=== PATIENT | male | born 1950 | race Caucasian/White ===

== ENCOUNTER → 2018-07-26 15:04 | Outpatient (CLI) | payer MEDICARE, OTHER, SELFPAY ==
[2018-07-26 15:50] LABS: Cholesterol 193 mg/dL (140-199); HDL Cholesterol 49 mg/dL (40-60); LDL Cholesterol Calculated 123 mg/dL (<100); Triglycerides 106 mg/dL (35-150)
[2018-07-26 16:14] LABS: Hemoglobin A1C% w Est Avg Glu 5.5 % (4.0-6.0)
== END ==
PROVIDERS: PCP Internal Medicine; Visit Provider Internal Medicine
DX: E78.5 Hyperlipidemia, unspecified (principal); R73.03 Prediabetes
CPT/HCPCS: 36415; 80061; 83036

== ENCOUNTER → 2019-04-16 06:10 | Outpatient (CLI) | payer MEDICARE, OTHER, SELFPAY ==
--- NOTE | 2019-04-16 | DI.MRI.S_ITS ---
PROCEDURE: MR LUMBAR SPINE WO/W CON INDICATIONS: Low back pain TECHNIQUE: Noncontrast sagittal T1 spin echo and T2 fast spin echo, sagittal STIR, axial T1 and T2 fast spin echo through the lumbar spine. In cases with scoliosis, additional coronal T2 fast spin echo may be performed. After the administration of contrast, sagittal and axial T1 spin echo with fat saturation through the lumbar spine. COMPARISON: None. FINDINGS: Image quality: Excellent. Alignment and curvature: There is normal bony alignment. Marrow: Marrow is of normal overall signal. No acute vertebral body compression fractures. No suspicious marrow enhancement. Spinal cord: Conus medullaris terminates at the L1 level. Visualized spinal cord demonstrates normal signal, without suspicious enhancement. Paraspinous soft tissues: No paravertebral masses or abnormal enhancement. L1-L2: There is mild degenerative disc disease with mild disc height reduction and desiccation and a slight degree of facet osteoarthritis is also present but there is no associated spinal or foraminal stenosis. L2-L3: At this level the degenerative disc disease is more prominent, moderate in severity, with a broad-based posterior transverse disc bulge. Facet osteoarthritis also is moderate with secondary mild to moderate symmetric foraminal stenosis. No significant spinal stenosis. L3-L4: At L3-L4 degenerative disc disease is moderate, and facet osteoarthritis is moderately severe. This results in mild concentric spinal stenosis 1 bilateral ligamentum flavum hypertrophy is taken into account, there also is a moderate to moderately severe degree of foraminal stenosis L4-L5: Moderately severe degenerative disc disease, moderate facet osteoarthritis. No significant spinal stenosis. Mild to moderate foraminal stenosis without significant spinal stenosis. L5-S1: The degenerative disc disease at this level is moderately severe, facet osteoarthritis is moderate. There is symmetric mild to moderate foraminal stenosis. No significant spinal stenosis. IMPRESSION: No disc herniation is found. No subluxation is present. Overall there is a moderate to moderately severe degree of degenerative changes along the lumbosacral spine with a combination of relatively mild spinal stenosis and more prominent foraminal stenosis (symmetric) as discussed in detail by level and the body of the report above. No compression fracture is found, chronic or acute, and overall a new source of low back pain is not identified. Dictated by: Dereje Leyva M.D. on 04/16/2019 at 15:51 Approved by: Dereje Leyva M.D. on 04/16/2019 at 16:05
--- NOTE | 2019-04-16 | DI.MRI.S_ITS ---
PROCEDURE: MR THORACIC SPINE WO/W CON INDICATIONS: Low back pain TECHNIQUE: Noncontrast sagittal T1 spin echo and T2 fast spin echo, sagittal STIR, axial T1 and T2 fast spin echo through the thoracic spine. After the administration of contrast, axial and sagittal T1 spin echo with fat saturation through the thoracic spine. COMPARISON: None. FINDINGS: Image quality: Excellent. Alignment and curvature: There is normal bony alignment. Marrow: Marrow is of normal overall signal except for the presence of several scattered small hemangiomas within the vertebral body. No acute vertebral body compression fractures. Spinal cord: Visualized spinal cord is of normal signal and size, without abnormal enhancement. No there is a mild degree of degenerative disc disease along the middle and lower thirds of the thoracic spine, but no area of spinal or foraminal stenosis or nerve root impingement is found. Paraspinous soft tissues: No paravertebral masses or abnormal enhancement. Miscellaneous: Central canal and foramina appear widely patent at all scanned levels. IMPRESSION: Mild degenerative disc disease and facet osteoarthritis, without nerve root impingement. Several scattered small vertebral body marrow space hemangiomas are incidentally noted, but no underlying infection or malignant neoplasm is suspected and no prior or recent compression fracture is found. Dictated by: Dereje Leyva M.D. on 04/16/2019 at 15:00 Approved by: Dereje Leyva M.D. on 04/16/2019 at 15:02
== END ==
PROVIDERS: PCP Internal Medicine; Visit Provider Internal Medicine
DX: M54.5 Low back pain (principal); M51.34 Other intervertebral disc degeneration, thoracic region; M47.817 Spondylosis without myelopathy or radiculopathy, lumbosacral region; M48.07 Spinal stenosis, lumbosacral region
CPT/HCPCS: 72157; 72158; A9579

== ENCOUNTER 2019-04-25 09:12 | Day surgery (SDC) | payer MEDICARE, OTHER, SELFPAY ==
[2019-04-25 09:42] VITALS: BP 141/88; PULSE 80; RESP 16; TEMP 36.1; O2SAT 97; BMI 31.4
[2019-04-25] MEDS: SODIUM CHLORIDE 0.9% 1,000 ML 84 ML IV (10:11)
--- NOTE | 2019-04-25 10:14 | PM.HP.1 ---
History of Present Illness History of Present Illness Date Patient Seen: 04/25/19 Time Patient Seen: 10:14 Chief complaint: [id number] COLONOSCOPY Narrative: Need for colon cancer screening. Recent change in bowel movements with relative constipation Patient History Medical History (Updated 04/25/19 @ 09:28 by Elizabeth Steele RN) History of colon polyps (Acute) Obstructive sleep apnea (Acute) Family & Social History Social History: household members spouse Tobacco & Substance use: Smoking Status Never smoker Meds Home Medications and Allergies Home Medications Medication Instructions Recorded Confirmed Type Saccharomyces boulardii 250 mg 500 mg PO BID cap 08/28/18 03/14/19 History capsule ascorbic acid (vitamin C) 100 mg 1,000 mg PO DAILY 08/28/18 03/14/19 History tablet aspirin 81 mg tablet,delayed 81 mg PO DAILY 08/28/18 04/25/19 History release betamethasone dipropionate 0.05 % 1 applictn TOP DAILY PRN 08/28/18 04/25/19 History topical cream diphenhydramine HCl 25 mg capsule 25 mg PO Q8H PRN cap 08/28/18 04/25/19 History docusate sodium 100 mg capsule 200 - 300 mg PO DAILY cap 08/28/18 04/25/19 History ibuprofen 200 mg tablet 200 mg PO TID-QID PRN 08/28/18 04/25/19 History krill oil 500 mg capsule 500 mg PO DAILY cap 08/28/18 04/25/19 History melatonin 10 mg capsule 10 mg PO BEDTIME PRN 08/28/18 04/25/19 History psyllium seed (sugar) 1 tbsp PO DAILY PRN 08/28/18 04/25/19 History ranitidine HCl 150 mg tablet 600 mg PO BID tab 08/28/18 03/14/19 History turmeric 450 mg-turmeric root cap PO cap 08/28/18 03/14/19 History extract 50 mg capsule vitamin B complex 1 cap PO DAILY 08/28/18 03/14/19 History ascorbic acid (vitamin C) [Vitamin 1,000 mg PO DAILY 04/25/19 04/25/19 History C] cholecalciferol (vitamin D3) 4,000 unit PO DAILY 04/25/19 04/25/19 History [Vitamin D3] finasteride PO DAILY 04/25/19 History Allergies Allergy/AdvReac Type Severity Reaction Status Date / Time Sulfa (Sulfonamide Allergy Unknown Hives Verified 04/25/19 09:34 Antibiotics) Exam Vital Signs (past 8 hours): - 04/25/19 09:42 Temperature 96.9 F L Pulse Rate 80 Respiratory Rate 16 Blood Pressure 141/88 H Pulse Oximetry 97 Oxygen Delivery Method Room Air Narrative Exam Narrative: Oropharynx free of lesions Chest clear to auscultation percussion Cardiac exam reveals no S3 or murmur Assessment & Plan Assessment & Plan narrative: Need for colorectal cancer screening. Risks, benefits, alternatives have been explained.
--- NOTE | 2019-04-25 10:15 | PM.OP.ENDO ---
Operative Date/Time/Diagnoses Date of procedure: 04/25/19 Time of procedure: 10:15 Pre-op diagnosis: See indication and findings Procedure & Clinicians Study performed: Colonoscopy Indications: Colon cancer screening Surgeon: Lawrence Engle Procedure Notes Procedure in detail: After informed consent was obtained the patient was placed in left lateral decubitus position. The video colonoscope was introduced the rectum slowly advanced to cecum. On slow withdrawal mucosa was carefully examined. Preparation was good. The scope was removed. The patient tolerated procedure well. Blood loss none Complications none Sedation Total sedation time 22 minutes Versed 6 mg fentanyl 100 mg IV titration Findings 1. Sigmoid diverticulosis mild to moderate 2. Otherwise negative colonoscopy to cecum Patient will need follow-up colonoscopy in 5 years. He should be on stool softeners and or extra fiber supplements to help with his relative constipation.
[2019-04-25] MEDS: MIDAZOLAM 5 MG/5 ML VIAL IV (10:41)
[2019-04-25] MEDS: fentaNYL 250 MCG/5 ML INJ IV (10:41)
[2019-04-25 10:42] VITALS: BP 114/78; PULSE 71; RESP 12; TEMP 36.6; O2SAT 91
[2019-04-25 10:46] VITALS: BP 113/78; PULSE 67; RESP 11; O2SAT 91
[2019-04-25 10:51] VITALS: BP 99/69; PULSE 81; RESP 10; O2SAT 91
[2019-04-25 11:03] VITALS: BP 99/69; PULSE 72; RESP 16; TEMP 36.7; O2SAT 90
[2019-04-25 11:20] VITALS: BP 118/70; PULSE 70; RESP 16; TEMP 36.7; O2SAT 94
== END 2019-04-25 11:25 | disposition home or self-care (01) ==
PROVIDERS: Family Provider Internal Medicine; PCP Internal Medicine; Visit Provider Internal Medicine Gastroenterology
PROC: 0DJD8ZZ Inspection of Lower Intestinal Tract, Via Natural or Artificial Opening Endoscopic (ICD-10-PCS; CPT 45378; principal; 2019-04-25 10:30)
DX: Z12.11 Encounter for screening for malignant neoplasm of colon (principal); Z86.010 Personal history of colon polyps; G47.33 Obstructive sleep apnea (adult) (pediatric); K57.30 Diverticulosis of large intestine without perforation or abscess without bleeding
CPT/HCPCS: G0105; J2250; J3010

== ENCOUNTER → 2019-06-27 18:04 | Outpatient (CLI) | payer MEDICARE, OTHER, SELFPAY ==
--- NOTE | 2019-06-27 | DI.MRI.S_ITS ---
PROCEDURE: MR CERVICAL SPINE WO CON INDICATIONS: CERVICALGIA TECHNIQUE: Noncontrast sagittal T1 spin echo and T2 fast spin echo, sagittal STIR, foraminal oblique sagittal T2 fast spin echo, and axial gradient echo or T2 fast spin echo through the cervical spine. COMPARISON: None. FINDINGS: Image quality: Excellent. Alignment and Curvature: Trace degenerative retrolisthesis of C3 on C4. Trace degenerative retrolisthesis of C4 on C5. Trace degenerative antral listhesis of C7 on T1. Bone Marrow: Marrow demonstrates normal overall signal. Spinal Cord: Visualized spinal cord has normal size and signal. No cerebellar tonsillar herniation. Paraspinous Soft Tissues: No paravertebral masses. Prevertebral soft tissues are normal in thickness. C2-C3: No canal stenosis. Prominent left facet hypertrophy. Moderate to severe left foraminal narrowing with flattening deformity on the exiting left C3 nerve root. C3-C4: Moderate chronic disc anulus. Diffuse posterior disc plus osteophyte. Moderate to severe central canal stenosis. Bilateral uncovertebral joint hypertrophy. Moderate to severe bilateral foraminal narrowing with flattening deformity on the exiting bilateral C4 nerve roots. C4-C5: Moderate chronic disc height loss. Diffuse posterior disc plus osteophyte with focal right posterior disc protrusion. Impingement on the ventral cord, eccentric to the right. Severe canal stenosis. Bilateral uncovertebral joint hypertrophy. Severe bilateral foraminal narrowing with impingement on the bilateral C5 nerve roots. C5-C6: Diffuse posterior disc bulge plus osteophyte. Indentation on the ventral cord. Severe canal stenosis. Bilateral facet hypertrophy and uncovertebral joint hypertrophy. Severe bilateral foraminal narrowing with impingement on the bilateral C6 nerve roots. C6-C7: Moderate chronic disc height loss. Mild diffuse disc bulge. Mild to moderate canal stenosis. Bilateral uncovertebral joint hypertrophy and facet hypertrophy. Severe bilateral foraminal narrowing with impingement on the bilateral C7 nerve roots. C7-T1: No canal stenosis. Prominent left facet hypertrophy. Moderate left foraminal narrowing with flattening deformity on the exiting left C8 nerve root. IMPRESSION: 1. Extensive diffuse cervical spondylitic change. 2. Advanced multilevel canal stenosis, moderate to severe at C3-C4, severe at C4-C5 and C5-C6, and mild to moderate at C6-C7. 3. Extensive multilevel foraminal narrowing as described above. Dictated by: Alejandro Nicholas M.D. on 06/28/2019 at 8:53 Approved by: Alejandro Nicholas M.D. on 06/28/2019 at 9:02
== END ==
PROVIDERS: Family Provider Internal Medicine; PCP Internal Medicine; Referring Provider Neurological Surgery; Visit Provider Neurological Surgery
DX: M54.2 Cervicalgia (principal); M47.812 Spondylosis without myelopathy or radiculopathy, cervical region; M48.02 Spinal stenosis, cervical region
CPT/HCPCS: 72141

== ENCOUNTER → 2019-07-05 13:52 | Outpatient (CLI) | payer MEDICARE, OTHER, SELFPAY ==
[2019-07-05 15:01] LABS: Alanine Aminotransferase 35 IU/L (<50); Albumin 4.8 g/dL (3.5-5.0); Albumin Globulin Ratio 1.5 (1.0-2.8); Alkaline Phosphatase 48 U/L (38-126); Aspartate Aminotransferase 32 IU/L (17-59); BUN Creatinine Ratio 25.6 (6-22); Bilirubin Total 0.6 mg/dL (0.2-1.3); Blood Urea Nitrogen 23 mg/dL (9-20); Calcium 9.9 mg/dL (8.4-10.2); Carbon Dioxide 26 mmol/L (22-32); Chloride 103 mmol/L (98-107); Cholesterol 185 mg/dL (140-199); Estimated Glomerular Filt Rate > 60.0 mL/min (>60); Globulin 3.3 g/dL (1.7-4.1); Glucose 108 mg/dL (80-110); HDL Cholesterol 46 mg/dL (40-60); HEMOLYSIS < 15 (0-50); LDL Cholesterol Calculated 108 mg/dL (<100); Potassium 4.3 mmol/L (3.4-5.1); Sodium 140 mmol/L (137-145); Total Protein 8.1 g/dL (6.3-8.2); Triglycerides 157 mg/dL (35-150)
[2019-07-05 15:03] LABS: Hemoglobin A1C% w Est Avg Glu 5.4 % (4.0-6.0)
== END ==
PROVIDERS: Family Provider Internal Medicine; PCP Internal Medicine; Referring Provider Internal Medicine; Visit Provider Internal Medicine
DX: E78.5 Hyperlipidemia, unspecified (principal); R73.03 Prediabetes
CPT/HCPCS: 36415; 80053; 80061; 83036

== ENCOUNTER → 2019-07-09 16:35 | Outpatient (CLI) | payer MEDICARE, OTHER, SELFPAY ==
--- NOTE | 2019-07-09 | DI.RAD.S_ITS ---
PROCEDURE: XR CERVICAL SPINE 4V OR 5V INDICATIONS: Stricture and stenosis of cervix uteri TECHNIQUE: 5 views of the cervical spine were acquired. COMPARISON: None. FINDINGS: Bones: No fractures or dislocations to the T1 level. No suspicious bony lesions. Degenerative endplate changes throughout cervical spine is seen more prominent at C4-5 and C6-7 levels. There is decreased range of motion between flexion and extension, with preserved cervical spine alignment. Soft tissues: Prevertebral soft tissues are normal in thickness. IMPRESSION: Degenerative disc disease throughout cervical spine with decreased range of motion. No fracture or dislocation. Dictated by: Charly Ocampo M.D. on 07/09/2019 at 18:23 Approved by: Charly Ocampo M.D. on 07/09/2019 at 18:23
== END ==
PROVIDERS: Family Provider Internal Medicine; PCP Internal Medicine; Referring Provider Neurological Surgery; Visit Provider Neurological Surgery
DX: M48.02 Spinal stenosis, cervical region (principal); M50.321 Other cervical disc degeneration at C4-C5 level
CPT/HCPCS: 72050

== ENCOUNTER → 2020-05-28 08:58 | Outpatient (CLI) | payer MEDICARE, OTHER, SELFPAY ==
[2020-05-28 10:37] LABS: COVID19 -Nasal RAPID Negative (Negative)
== END ==
PROVIDERS: Family Provider Internal Medicine; Referring Provider Internal Medicine Pulmonary Disease; Visit Provider Internal Medicine Pulmonary Disease
DX: Z20.822 Contact with and (suspected) exposure to COVID-19 (principal)
CPT/HCPCS: 87635; C9803

== ENCOUNTER → 2020-05-29 12:52 | Outpatient (CLI) | payer MEDICARE, OTHER, SELFPAY ==
--- NOTE | 2020-06-04 10:00 | PM.PFT.1 ---
Pulmonary Function Test Referral & Results Date Patient Seen: 05/29/20 Requesting provider: Thor Shell Results: The spirometry demonstrates an FVC of 3.39 L which is 71% of predicted. The FEV1 was measured at 2.29 L which is 65% of predicted. The FEV1/FVC ratio was 68 which is 91% of predicted. Following the administration of bronchodilator there was a 30% improvement in FEV1 and a 128% improvement in FEF 25-75%. The diffusing capacity was measured at 28.26 which is 80% of predicted. Interpretation: This study demonstrates mild obstructive lung disease based on reduction FEV1 although FEV1/FVC ratio is relatively preserved. There is evidence of significant benefit following bronchodilator administration as above Diffusing capacity is probably normal although there may be a slight reduction, unless patient is anemic of course.
== END ==
PROVIDERS: Family Provider Internal Medicine; PCP Internal Medicine; Referring Provider Internal Medicine Pulmonary Disease; Visit Provider Internal Medicine Pulmonary Disease
DX: R06.02 Shortness of breath (principal); J98.8 Other specified respiratory disorders
CPT/HCPCS: 94060; 94729

== ENCOUNTER → 2021-08-06 10:30 | Outpatient (CLI) | payer MEDICARE, OTHER, SELFPAY ==
[2021-08-06 11:25] LABS: Fractionated Inspired Oxygen 21; HCO3 ABG 26 mmol/L (22-26); Oxygen Saturation ABG 95 % (95-100); PCO2 ABG 39.5 mmHg (35-45); PO2 ABG 72 mmHg (80-100); TCO2 ABG 27 mmol/L (21-31); pH ABG 7.43 (7.35-7.45)
== END ==
LOC: LAB 11:22 → RESP 12:51
PROVIDERS: Family Provider Internal Medicine; PCP Internal Medicine; Referring Provider Internal Medicine Pulmonary Disease; Visit Provider Internal Medicine Pulmonary Disease
DX: J44.9 Chronic obstructive pulmonary disease, unspecified (principal)
CPT/HCPCS: 36600; 82805

== ENCOUNTER 2021-10-09 09:45 | Outpatient (RCR) | payer MEDICARE, OTHER, SELFPAY ==
--- NOTE | 2021-09-17 16:00 | PT.OPPOC ---
Physical, Occupational & Speech Therapy At [facility] Current Diagnoses Cervicalgia (09/17/21) Dizziness and giddiness (09/17/21) Visit Care Team Role Provider Type Nayely Levine MD Attending Provider Non-Staff Family Provider Primary Care Provider Referring Provider Specialty: Internal Medicine Address: [address] [place] [address], [phone] Email: Plan Of Care PT-OP-T Assessment and Plan Start: 09/09/21 12:04 Freq: Status: Active Protocol: Document 09/17/21 11:15 AMB (Rec: 09/20/21 12:50 AMB [id number]) Physical Therapy Assessment Rehab Potential Rehabilitation Potential Good Evaluation Complexity Number of Personal Factors/Comorbidities 1-2 Number of Body Systems Impaired 4 or More Clinical Presentation at Evaluation Stable Impairments Impairments Pain,Posture,ROM,Vestibular Goals Three Impairment neck pain Short Term Goal (STG) Alejandro will lift 10 pounds from the floor to chest height without an increase in neck pain. STG Duration 4 weeks Group Home Goal (LTG) Alejandro will drive his car for 30 minutes with neck pain of 3/ 10 or less. LTG Duration 8 weeks Two Impairment dizziness Short Term Goal (STG) Alejandro will look up without dizziness. STG Duration 4 weeks One Impairment ROM Short Term Goal (STG) Alejandor will improve his cervical rotation to at least 50 degrees bilaterally. STG Duration 4 weeks Group Home Goal (LTG) Alejandro will improve his cervical extension to at least 40 degrees. Assessment Summary Assessment Alejandro attends physical therapy mostly concerned about his neck pain. His neck range of motion is very limited 2 years s/p cervical laminoplasty. A thorough exam of his dizziness was not performed at [facility], given that he reports it is getting better and mostly due to time restrictions. Will continue to assess, and treat if dizziness does not resolve. Alejandro's posture and limited range of motion make it difficult for him to be as active as he would like to be (boating/lifting) and he will benefit from physical therapy to reduce his pain and improve his ROM. Physical Therapy Plan Frequency and Duration Frequency of Treatment 2x/Week Duration of Treatment 8 weeks Plan of Care Start Date 09/17/21 Plan of Care End Date 11/12/21 Therapeutic Interventions Therapeutic Interventions Balance Training,Home Exercise Program,Joint Mobilizations, Manual Therapy,Neuromuscular Re-education,Self-Care/Home Management,Therapeutic Activities,Therapeutic Exercises,Vestibular Rehabilitation Modalities Cold Pack/Ice Massage,Electric Stimulation,Hot Packs Next Visit Focus/Plan Next Note Type Treatment Note Next Visit Plan Continue to progress cervical ROM, assess dizziness Plan of Care Dates Plan of Care Start Date 09/17/21 Plan of Care End Date 11/12/21 Electronically Signed by: Soal Santos, PT 09/20/21 [id number] If you are in agreement with this Plan of Care, please return a signed and dated copy. I have reviewed this Plan of Care and certify that the skilled therapy services above are required to meet the patient?s needs. Physician Signature Date Printed Name and Credentials Clinical Instructor Signature Printed Name and Credentials
--- NOTE | 2021-09-17 16:00 | PT.OIE ---
Current Diagnoses Cervicalgia (09/17/21) Dizziness and giddiness (09/17/21) Past Medical History (Last Updated 04/25/19 @ 09:28 by Elizabeth Steele RN) History of colon polyps Obstructive sleep apnea Visit Care Team Role Provider Type Nayely Levine MD Attending Provider Non-Staff Family Provider Primary Care Provider Referring Provider Specialty: Internal Medicine Address: [address] [place] [address], [phone] Email: Physical Therapy Initial Evaluation PT-OP-A Visit Information Start: 09/09/21 12:04 Freq: Status: Active Protocol: Document 09/17/21 11:18 AMB (Rec: 09/17/21 11:39 AMB [id number]) Out-Patient Physical Therapy Visit Information Visit Information Visit Type Initial Evaluation Visit Start Time 11:15 Visit Stop Time 12:00 Total Visit Minutes 45 Visit Number 1 PT-OP-B Current Condition Start: 09/09/21 12:04 Freq: Status: Active Protocol: Document 09/17/21 11:18 AMB (Rec: 09/17/21 11:39 AMB [id number]) Current Condition History of Current Condition Onset Date September 2019 cervical laminoplasty Current Complaints neck pain, dizziness History of Current Condition Alejandro had a cervical laminoplasty C3-5 2 years ago. He elected to have the surgery, not due to neck pain but due to radicular sx (bowel /bladder/midback). 3 months ago developed vertigo when lying down the world spins. Spinning seems to be getting better over the past few weeks . Looking up increases pain, lifting increases neck pain. Did have prior PT for neck after surgery. Hasn't been boating as much because of the pain. Notices stiffness with neck range especially with driving. Sleeps on his sides/ back. History of lumbar laminectomy with numbness in great toe, does report less sure with balance. Treatment Goals Patient/Caregiver Goals Be able to move neck, less neck pain Prior Functional Status Baseline Function- ADL's Modified Independent Baseline Function- Mobility Modified Independent Current Functional Impairments (Reported) Functional Limitations- ADL's Dizziness getting into bed, reduced range of motion, neck pain, difficulty with lifting and boating due to pain Personal Factors Other Personal Factors That May Effect Pt reported low SpO2, fatigue Therapy/Recovery PT-OP-C Subjective Start: 09/09/21 12:04 Freq: Status: Active Protocol: Document 09/17/21 11:15 AMB (Rec: 09/20/21 12:33 AMB [id number]) Patient Questionnaires Dizziness Handicap Inventory DHI Score 50 DHI Functional Impairment 40 to 59% Impaired (Score 40- 59) Neck Disability Index NDI Score 20 Neck Disability Index Impairment 40 to 59% Impaired (Score 20- 29) Quick Dash- Upper Extremity Quick Dash UE Score 39 Quick Dash UE Impairment 20 to 39% Impaired (Score 20- 39) PT-OP-J Posture/Palpation/Skin Start: 09/09/21 12:04 Freq: Status: Active Protocol: Document 09/17/21 11:15 AMB (Rec: 09/20/21 12:33 AMB [id number]) Posture Evaluation Comments Posture Comments Forward head, forward shoulder posture, flat cervical spine Palpation Assessment Location One Palpation Location neck Palpation Findings Soft Tissue Tightness,Muscle Guarding Palpation Details increased tone of paraspinal muscles around scar from mid to lower cervical spine. Increased muscle tone of upper trapezius and levator scapula PT-OP-K Range of Motion Start: 09/09/21 12:04 Freq: Status: Active Protocol: Document 09/17/21 11:45 AMB (Rec: 09/17/21 11:49 AMB [id number]) Cervical Spine Range of Motion Cervical Spine Active Degrees Testing Position Sitting Flexion 40 Extension 30 Rotation Left 40 Rotation Right 34 Lateral Flexion Left 5 Lateral Flexion Right 5 PT-OP-Q Treatments Start: 09/09/21 12:04 Freq: Status: Active Protocol: Document 09/17/21 11:15 AMB (Rec: 09/20/21 12:50 AMB [id number]) Therapeutic Exercises Sitting Exercises scap retraction Reps/Minutes 10 levator scap stretch Reps/Minutes 30x2 PT-OP-T Assessment and Plan Start: 09/09/21 12:04 Freq: Status: Active Protocol: Document 09/17/21 11:15 AMB (Rec: 09/20/21 12:50 AMB [id number]) Physical Therapy Assessment Rehab Potential Rehabilitation Potential Good Evaluation Complexity Number of Personal Factors/Comorbidities 1-2 Number of Body Systems Impaired 4 or More Clinical Presentation at Evaluation Stable Impairments Impairments Pain,Posture,ROM,Vestibular Goals Three Impairment neck pain Short Term Goal (STG) Alejandro will lift 10 pounds from the floor to chest height without an increase in neck pain. STG Duration 4 weeks Post Partum Nurse Goal (LTG) Alejandro will drive his car for 30 minutes with neck pain of 3/ 10 or less. LTG Duration 8 weeks Two Impairment dizziness Short Term Goal (STG) Alejandro will look up without dizziness. STG Duration 4 weeks One Impairment ROM Short Term Goal (STG) Alejandro will improve his cervical rotation to at least 50 degrees bilaterally. STG Duration 4 weeks [facility] Goal (LTG) Alejandro will improve his cervical extension to at least 40 degrees. Assessment Summary Assessment Alejandro attends physical therapy mostly concerned about his neck pain. His neck range of motion is very limited 2 years s/p cervical laminoplasty. A thorough exam of his dizziness was not performed at [facility], given that he reports it is getting better and mostly due to time restrictions. Will continue to assess, and treat if dizziness does not resolve. Alejandro's posture and limited range of motion make it difficult for him to be as active as he would like to be (boating/lifting) and he will benefit from physical therapy to reduce his pain and improve his ROM. Physical Therapy Plan Frequency and Duration Frequency of Treatment 2x/Week Duration of Treatment 8 weeks Plan of Care Start Date 09/17/21 Plan of Care End Date 11/12/21 Therapeutic Interventions Therapeutic Interventions Balance Training,Home Exercise Program,Joint Mobilizations, Manual Therapy,Neuromuscular Re-education,Self-Care/Home Management,Therapeutic Activities,Therapeutic Exercises,Vestibular Rehabilitation Modalities Cold Pack/Ice Massage,Electric Stimulation,Hot Packs Next Visit Focus/Plan Next Note Type Treatment Note Next Visit Plan Continue to progress cervical ROM, assess dizziness
--- NOTE | 2021-09-22 12:15 | PT.OTN ---
Current Diagnoses Cervicalgia (09/22/21) Dizziness and giddiness (09/22/21) Physical Therapy Treatment Note PT-OP-A Visit Information Start: 09/09/21 12:04 Freq: Status: Active Protocol: Document 09/22/21 11:15 AMB (Rec: 09/22/21 12:13 AMB [id number]) Out-Patient Physical Therapy Visit Information Visit Information Visit Type Treatment Note Visit Start Time 11:30 Visit Stop Time 12:00 Total Visit Minutes 30 Visit Number 2 PT-OP-B Current Condition Start: 09/09/21 12:04 Freq: Status: Active Protocol: Document 09/17/21 11:18 AMB (Rec: 09/17/21 11:39 AMB [id number]) Current Condition History of Current Condition Onset Date September 2019 cervical laminoplasty Current Complaints neck pain, dizziness History of Current Condition Alejandro had a cervical laminoplasty C3-5 2 years ago. He elected to have the surgery, not due to neck pain but due to radicular sx (bowel /bladder/midback). 3 months ago developed vertigo when lying down the world spins. Spinning seems to be getting better over the past few weeks . Looking up increases pain, lifting increases neck pain. Did have prior PT for neck after surgery. Hasn't been boating as much because of the pain. Notices stiffness with neck range especially with driving. Sleeps on his sides/ back. History of lumbar laminectomy with numbness in great toe, does report less sure with balance. Treatment Goals Patient/Caregiver Goals Be able to move neck, less neck pain Prior Functional Status Baseline Function- ADL's Modified Independent Baseline Function- Mobility Modified Independent Current Functional Impairments (Reported) Functional Limitations- ADL's Dizziness getting into bed, reduced range of motion, neck pain, difficulty with lifting and boating due to pain Personal Factors Other Personal Factors That May Effect Pt reported low SpO2, fatigue Therapy/Recovery PT-OP-C Subjective Start: 09/09/21 12:04 Freq: Status: Active Protocol: Document 09/22/21 11:15 AMB (Rec: 09/22/21 12:13 AMB [id number]) OP-PT Subjective Patient Comments Patient Comments Reports intermittent L numbness with sleeping in the night, C8/ulnar dermatome from his description. PT-OP-J Posture/Palpation/Skin Start: 09/09/21 12:04 Freq: Status: Active Protocol: Document 09/17/21 11:15 AMB (Rec: 09/20/21 12:33 AMB [id number]) Posture Evaluation Comments Posture Comments Forward head, forward shoulder posture, flat cervical spine Palpation Assessment Location One Palpation Location neck Palpation Findings Soft Tissue Tightness,Muscle Guarding Palpation Details increased tone of paraspinal muscles around scar from mid to lower cervical spine. Increased muscle tone of upper trapezius and levator scapula PT-OP-K Range of Motion Start: 09/09/21 12:04 Freq: Status: Active Protocol: Document 09/17/21 11:45 AMB (Rec: 09/17/21 11:49 AMB [id number]) Cervical Spine Range of Motion Cervical Spine Active Degrees Testing Position Sitting Flexion 40 Extension 30 Rotation Left 40 Rotation Right 34 Lateral Flexion Left 5 Lateral Flexion Right 5 PT-OP-Q Treatments Start: 09/09/21 12:04 Freq: Status: Active Protocol: Document 09/22/21 11:15 AMB (Rec: 09/22/21 12:13 AMB [id number]) Therapeutic Exercises Sitting Exercises scap retraction Reps/Minutes 10 levator scap stretch Reps/Minutes 30x2 Standing Exercises chin tuck Standing Exercise Name against wall Reps/Minutes 5x 5 Comments cued occiput back to avoid upper cervical extension Manual Therapy Treatment Soft Tissue Mobilization suboccipital release Mobilization Type Myofascial Release,Sustained Pressure Body Position Hooklying Manual Techniques 1 Type contract relax Body Position Hooklying Reps/Duration 5 min Comments cervical rotation PT-OP-T Assessment and Plan Start: 09/09/21 12:04 Freq: Status: Active Protocol: Document 09/22/21 11:15 AMB (Rec: 09/22/21 12:13 AMB [id number]) Physical Therapy Assessment Goals Three Impairment neck pain Short Term Goal (STG) Alejandro will lift 10 pounds from the floor to chest height without an increase in neck pain. STG Duration 4 weeks Social Media Community Manager Goal (LTG) Alejandro will drive his car for 30 minutes with neck pain of 3/ 10 or less. LTG Duration 8 weeks Two Impairment dizziness Short Term Goal (STG) Alejandro will look up without dizziness. STG Duration 4 weeks One Impairment ROM Short Term Goal (STG) Alejandro will improve his cervical rotation to at least 50 degrees bilaterally. STG Duration 4 weeks [facility] Goal (LTG) Alejandro will improve his cervical extension to at least 40 degrees. Assessment Summary Assessment Alejandro arrived 15 min late. He is having difficulty with the chin tuck, so spent a significant amount of time on that. He states dizziness hasn't been having much dizziness. L arm numbness only with sleeping. Physical Therapy Plan Frequency and Duration Frequency of Treatment 2x/Week Duration of Treatment 8 weeks Plan of Care Start Date 09/17/21 Plan of Care End Date 11/12/21 Therapeutic Interventions Therapeutic Interventions Balance Training,Home Exercise Program,Joint Mobilizations, Manual Therapy,Neuromuscular Re-education,Self-Care/Home Management,Therapeutic Activities,Therapeutic Exercises,Vestibular Rehabilitation Modalities Cold Pack/Ice Massage,Electric Stimulation,Hot Packs Next Visit Focus/Plan Next Note Type Treatment Note Next Visit Plan Follow up on posture, HEP: chin tuck, scap retract, levator scap stretch.
--- NOTE | 2021-09-28 11:31 | PT.OTN ---
Current Diagnoses Cervicalgia (09/28/21) Dizziness and giddiness (09/28/21) Physical Therapy Treatment Note PT-OP-A Visit Information Start: 09/09/21 12:04 Freq: Status: Active Protocol: Document 09/28/21 10:30 DCW (Rec: 09/28/21 11:31 DCW [id number]) Out-Patient Physical Therapy Visit Information Visit Information Visit Type Treatment Note Visit Start Time 10:30 Visit Stop Time 11:15 Total Visit Minutes 45 Visit Number 3 Number of ELEMENTARY VOCAL MUSIC TEACHER Visits 0 PT-OP-B Current Condition Start: 09/09/21 12:04 Freq: Status: Active Protocol: Document 09/17/21 11:18 AMB (Rec: 09/17/21 11:39 AMB [id number]) Current Condition History of Current Condition Onset Date September 2019 cervical laminoplasty Current Complaints neck pain, dizziness History of Current Condition Alejandro had a cervical laminoplasty C3-5 2 years ago. He elected to have the surgery, not due to neck pain but due to radicular sx (bowel /bladder/midback). 3 months ago developed vertigo when lying down the world spins. Spinning seems to be getting better over the past few weeks . Looking up increases pain, lifting increases neck pain. Did have prior PT for neck after surgery. Hasn't been boating as much because of the pain. Notices stiffness with neck range especially with driving. Sleeps on his sides/ back. History of lumbar laminectomy with numbness in great toe, does report less sure with balance. Treatment Goals Patient/Caregiver Goals Be able to move neck, less neck pain Prior Functional Status Baseline Function- ADL's Modified Independent Baseline Function- Mobility Modified Independent Current Functional Impairments (Reported) Functional Limitations- ADL's Dizziness getting into bed, reduced range of motion, neck pain, difficulty with lifting and boating due to pain Personal Factors Other Personal Factors That May Effect Pt reported low SpO2, fatigue Therapy/Recovery PT-OP-C Subjective Start: 09/09/21 12:04 Freq: Status: Active Protocol: Document 09/28/21 10:30 DCW (Rec: 09/28/21 11:31 DCW [id number]) OP-PT Subjective Patient Comments Patient Comments My goal is really just to help out with the pain a little bit. Most of the issue is structural, and I know you can't do much for that. PT-OP-J Posture/Palpation/Skin Start: 09/09/21 12:04 Freq: Status: Active Protocol: Document 09/17/21 11:15 AMB (Rec: 09/20/21 12:33 AMB [id number]) Posture Evaluation Comments Posture Comments Forward head, forward shoulder posture, flat cervical spine Palpation Assessment Location One Palpation Location neck Palpation Findings Soft Tissue Tightness,Muscle Guarding Palpation Details increased tone of paraspinal muscles around scar from mid to lower cervical spine. Increased muscle tone of upper trapezius and levator scapula PT-OP-K Range of Motion Start: 09/09/21 12:04 Freq: Status: Active Protocol: Document 09/17/21 11:45 AMB (Rec: 09/17/21 11:49 AMB [id number]) Cervical Spine Range of Motion Cervical Spine Active Degrees Testing Position Sitting Flexion 40 Extension 30 Rotation Left 40 Rotation Right 34 Lateral Flexion Left 5 Lateral Flexion Right 5 PT-OP-Q Treatments Start: 09/09/21 12:04 Freq: Status: Active Protocol: Document 09/28/21 10:30 DCW (Rec: 09/28/21 11:31 DCW [id number]) Manual Therapy Treatment Soft Tissue Mobilization suboccipital release Mobilization Type Myofascial Release,Sustained Pressure Body Position Hooklying Joint Mobilizations C2 Joint C2 Direction CCW rotation Grade II Body Position Hooklying Manual Techniques 1 Type contract relax Body Position Hooklying Reps/Duration 5 min Comments cervical rotation PT-OP-T Assessment and Plan Start: 09/09/21 12:04 Freq: Status: Active Protocol: Document 09/28/21 10:30 DCW (Rec: 09/28/21 11:31 DCW [id number]) Physical Therapy Assessment Goals Three Impairment neck pain Short Term Goal (STG) Alejandro will lift 10 pounds from the floor to chest height without an increase in neck pain. STG Duration 4 weeks Safety Advisor Goal (LTG) Alejandro will drive his car for 30 minutes with neck pain of 3/ 10 or less. LTG Duration 8 weeks Two Impairment dizziness Short Term Goal (STG) Alejandro will look up without dizziness. STG Duration 4 weeks One Impairment ROM Short Term Goal (STG) Alejandro will improve his cervical rotation to at least 50 degrees bilaterally. STG Duration 4 weeks Alf Goal (LTG) Alejandro will improve his cervical extension to at least 40 degrees. Assessment Summary Assessment Pt has a significant number of ideas and theories regarding his condition today, most notably that his Vagus nerve may be affected in some way, leading to his multi-system symptoms. Worked more on mobilization of C2 today, as that is an area pt is most worried about. Physical Therapy Plan Frequency and Duration Frequency of Treatment 2x/Week Duration of Treatment 8 weeks Plan of Care Start Date 09/17/21 Plan of Care End Date 11/12/21 Therapeutic Interventions Therapeutic Interventions Balance Training,Home Exercise Program,Joint Mobilizations, Manual Therapy,Neuromuscular Re-education,Self-Care/Home Management,Therapeutic Activities,Therapeutic Exercises,Vestibular Rehabilitation Modalities Cold Pack/Ice Massage,Electric Stimulation,Hot Packs Next Visit Focus/Plan Next Note Type Treatment Note Next Visit Plan Follow up on posture, HEP: chin tuck, scap retract, levator scap stretch.
--- NOTE | 2021-10-01 12:45 | PT.OTN ---
Current Diagnoses Cervicalgia (10/01/21) Dizziness and giddiness (10/01/21) Physical Therapy Treatment Note PT-OP-A Visit Information Start: 09/09/21 12:04 Freq: Status: Active Protocol: Document 10/01/21 12:00 DCW (Rec: 10/01/21 12:45 DCW [id number]) Out-Patient Physical Therapy Visit Information Visit Information Visit Type Treatment Note Visit Start Time 12:00 Visit Stop Time 12:45 Total Visit Minutes 45 Visit Number 4 Number of LAST[employer] THREAD WINDER Visits 0 PT-OP-B Current Condition Start: 09/09/21 12:04 Freq: Status: Active Protocol: Document 09/17/21 11:18 AMB (Rec: 09/17/21 11:39 AMB [id number]) Current Condition History of Current Condition Onset Date September 2019 cervical laminoplasty Current Complaints neck pain, dizziness History of Current Condition Alejandro had a cervical laminoplasty C3-5 2 years ago. He elected to have the surgery, not due to neck pain but due to radicular sx (bowel /bladder/midback). 3 months ago developed vertigo when lying down the world spins. Spinning seems to be getting better over the past few weeks . Looking up increases pain, lifting increases neck pain. Did have prior PT for neck after surgery. Hasn't been boating as much because of the pain. Notices stiffness with neck range especially with driving. Sleeps on his sides/ back. History of lumbar laminectomy with numbness in great toe, does report less sure with balance. Treatment Goals Patient/Caregiver Goals Be able to move neck, less neck pain Prior Functional Status Baseline Function- ADL's Modified Independent Baseline Function- Mobility Modified Independent Current Functional Impairments (Reported) Functional Limitations- ADL's Dizziness getting into bed, reduced range of motion, neck pain, difficulty with lifting and boating due to pain Personal Factors Other Personal Factors That May Effect Pt reported low SpO2, fatigue Therapy/Recovery PT-OP-C Subjective Start: 09/09/21 12:04 Freq: Status: Active Protocol: Document 10/01/21 12:00 DCW (Rec: 10/01/21 12:45 DCW [id number]) OP-PT Subjective Patient Comments Patient Comments Pt was able to meet with a friend of his who is a chiropractor, feels better about the stability of his C1- C2 now, which was a prior concern of his. PT-OP-J Posture/Palpation/Skin Start: 09/09/21 12:04 Freq: Status: Active Protocol: Document 09/17/21 11:15 AMB (Rec: 09/20/21 12:33 AMB [id number]) Posture Evaluation Comments Posture Comments Forward head, forward shoulder posture, flat cervical spine Palpation Assessment Location One Palpation Location neck Palpation Findings Soft Tissue Tightness,Muscle Guarding Palpation Details increased tone of paraspinal muscles around scar from mid to lower cervical spine. Increased muscle tone of upper trapezius and levator scapula PT-OP-K Range of Motion Start: 09/09/21 12:04 Freq: Status: Active Protocol: Document 09/17/21 11:45 AMB (Rec: 09/17/21 11:49 AMB [id number]) Cervical Spine Range of Motion Cervical Spine Active Degrees Testing Position Sitting Flexion 40 Extension 30 Rotation Left 40 Rotation Right 34 Lateral Flexion Left 5 Lateral Flexion Right 5 PT-OP-Q Treatments Start: 09/09/21 12:04 Freq: Status: Active Protocol: Document 10/01/21 12:00 DCW (Rec: 10/01/21 12:45 DCW [id number]) Manual Therapy Treatment Soft Tissue Mobilization suboccipital release Mobilization Type Myofascial Release,Sustained Pressure Body Position Hooklying Joint Mobilizations C2 Joint C2 Direction CCW rotation Grade II Body Position Hooklying Manual Techniques 1 Type contract relax Body Position Hooklying Reps/Duration 5 min Comments cervical rotation PT-OP-T Assessment and Plan Start: 09/09/21 12:04 Freq: Status: Active Protocol: Document 10/01/21 12:00 DCW (Rec: 10/01/21 12:45 DCW [id number]) Physical Therapy Assessment Goals Three Impairment neck pain Short Term Goal (STG) Alejandro will lift 10 pounds from the floor to chest height without an increase in neck pain. STG Duration 4 weeks Seo Associate Goal (LTG) Alejandro will drive his car for 30 minutes with neck pain of 3/ 10 or less. LTG Duration 8 weeks Two Impairment dizziness Short Term Goal (STG) Alejandro will look up without dizziness. STG Duration 4 weeks One Impairment ROM Short Term Goal (STG) Alejandro will improve his cervical rotation to at least 50 degrees bilaterally. STG Duration 4 weeks Seo Associate Goal (LTG) Alejandro will improve his cervical extension to at least 40 degrees. Assessment Summary Assessment Pt much more relaxed today and feels less apprehensive about cervical instability, tolerated treatment well. Physical Therapy Plan Frequency and Duration Frequency of Treatment 2x/Week Duration of Treatment 8 weeks Plan of Care Start Date 09/17/21 Plan of Care End Date 11/12/21 Therapeutic Interventions Therapeutic Interventions Balance Training,Home Exercise Program,Joint Mobilizations, Manual Therapy,Neuromuscular Re-education,Self-Care/Home Management,Therapeutic Activities,Therapeutic Exercises,Vestibular Rehabilitation Modalities Cold Pack/Ice Massage,Electric Stimulation,Hot Packs Next Visit Focus/Plan Next Note Type Treatment Note Next Visit Plan Follow up on posture, HEP: chin tuck, scap retract, levator scap stretch.
--- NOTE | 2021-10-06 10:24 | PT.OTN ---
Current Diagnoses Cervicalgia (10/06/21) Dizziness and giddiness (10/06/21) Physical Therapy Treatment Note PT-OP-A Visit Information Start: 09/09/21 12:04 Freq: Status: Active Protocol: Document 10/06/21 09:03 AMB (Rec: 10/06/21 09:47 AMB [id number]) Out-Patient Physical Therapy Visit Information Visit Information Visit Type Treatment Note Visit Start Time 09:00 Visit Stop Time 09:45 Total Visit Minutes 45 Visit Number 5 PT-OP-B Current Condition Start: 09/09/21 12:04 Freq: Status: Active Protocol: Document 09/17/21 11:18 AMB (Rec: 09/17/21 11:39 AMB [id number]) Current Condition History of Current Condition Onset Date September 2019 cervical laminoplasty Current Complaints neck pain, dizziness History of Current Condition Alejandro had a cervical laminoplasty C3-5 2 years ago. He elected to have the surgery, not due to neck pain but due to radicular sx (bowel /bladder/midback). 3 months ago developed vertigo when lying down the world spins. Spinning seems to be getting better over the past few weeks . Looking up increases pain, lifting increases neck pain. Did have prior PT for neck after surgery. Hasn't been boating as much because of the pain. Notices stiffness with neck range especially with driving. Sleeps on his sides/ back. History of lumbar laminectomy with numbness in great toe, does report less sure with balance. Treatment Goals Patient/Caregiver Goals Be able to move neck, less neck pain Prior Functional Status Baseline Function- ADL's Modified Independent Baseline Function- Mobility Modified Independent Current Functional Impairments (Reported) Functional Limitations- ADL's Dizziness getting into bed, reduced range of motion, neck pain, difficulty with lifting and boating due to pain Personal Factors Other Personal Factors That May Effect Pt reported low SpO2, fatigue Therapy/Recovery PT-OP-C Subjective Start: 09/09/21 12:04 Freq: Status: Active Protocol: Document 10/06/21 09:03 AMB (Rec: 10/06/21 09:47 AMB [id number]) OP-PT Subjective Patient Comments Patient Comments Pt is seeing a chiropractor in [place] on Tuesday. Mobility of the neck is improving, but pain has not been yet. Feels like vertigo has worsened in the last week. PT-OP-J Posture/Palpation/Skin Start: 09/09/21 12:04 Freq: Status: Active Protocol: Document 09/17/21 11:15 AMB (Rec: 09/20/21 12:33 AMB [id number]) Posture Evaluation Comments Posture Comments Forward head, forward shoulder posture, flat cervical spine Palpation Assessment Location One Palpation Location neck Palpation Findings Soft Tissue Tightness,Muscle Guarding Palpation Details increased tone of paraspinal muscles around scar from mid to lower cervical spine. Increased muscle tone of upper trapezius and levator scapula PT-OP-K Range of Motion Start: 09/09/21 12:04 Freq: Status: Active Protocol: Document 09/17/21 11:45 AMB (Rec: 09/17/21 11:49 AMB [id number]) Cervical Spine Range of Motion Cervical Spine Active Degrees Testing Position Sitting Flexion 40 Extension 30 Rotation Left 40 Rotation Right 34 Lateral Flexion Left 5 Lateral Flexion Right 5 PT-OP-Q Treatments Start: 09/09/21 12:04 Freq: Status: Active Protocol: Document 10/06/21 10:19 AMB (Rec: 10/07/21 10:22 AMB [id number]) Neuro Re-Education Treatment Other Activities 1 Details R Mary Reps/Duration 1 Comments torsional nystagmus in first postion for 5-10 seconds, very challenging to allow enough cervical extension throughout treatment, extensive pt education provided PT-OP-T Assessment and Plan Start: 09/09/21 12:04 Freq: Status: Active Protocol: Document 10/06/21 09:03 AMB (Rec: 10/06/21 09:47 AMB [id number]) Physical Therapy Assessment Goals Three Impairment neck pain Short Term Goal (STG) Alejandro will lift 10 pounds from the floor to chest height without an increase in neck pain. STG Duration 4 weeks Snf Goal (LTG) Alejandro will drive his car for 30 minutes with neck pain of 3/ 10 or less. LTG Duration 8 weeks Two Impairment dizziness Short Term Goal (STG) Alejandro will look up without dizziness. STG Duration 4 weeks One Impairment ROM Short Term Goal (STG) Alejandro will improve his cervical rotation to at least 50 degrees bilaterally. STG Duration 4 weeks Environmental Science Technician Goal (LTG) Alejandro will improve his cervical extension to at least 40 degrees. Assessment Summary Assessment Pt did have signs of BPPV with R sided Job-Hallpike. Physical Therapy Plan Next Visit Focus/Plan Next Note Type Treatment Note Next Visit Plan REassess Job Hallpike Follow up on posture, HEP: chin tuck , scap retract, levator scap stretch.
--- NOTE | 2021-10-07 10:23 | PT.OTN ---
Current Diagnoses Cervicalgia (10/06/21) Dizziness and giddiness (10/06/21) Physical Therapy Treatment Note PT-OP-A Visit Information Start: 09/09/21 12:04 Freq: Status: Active Protocol: Document 10/06/21 09:03 AMB (Rec: 10/06/21 09:47 AMB [id number]) Out-Patient Physical Therapy Visit Information Visit Information Visit Type Treatment Note Visit Start Time 09:00 Visit Stop Time 09:45 Total Visit Minutes 45 Visit Number 5 PT-OP-B Current Condition Start: 09/09/21 12:04 Freq: Status: Active Protocol: Document 09/17/21 11:18 AMB (Rec: 09/17/21 11:39 AMB [id number]) Current Condition History of Current Condition Onset Date September 2019 cervical laminoplasty Current Complaints neck pain, dizziness History of Current Condition Alejandro had a cervical laminoplasty C3-5 2 years ago. He elected to have the surgery, not due to neck pain but due to radicular sx (bowel /bladder/midback). 3 months ago developed vertigo when lying down the world spins. Spinning seems to be getting better over the past few weeks . Looking up increases pain, lifting increases neck pain. Did have prior PT for neck after surgery. Hasn't been boating as much because of the pain. Notices stiffness with neck range especially with driving. Sleeps on his sides/ back. History of lumbar laminectomy with numbness in great toe, does report less sure with balance. Treatment Goals Patient/Caregiver Goals Be able to move neck, less neck pain Prior Functional Status Baseline Function- ADL's Modified Independent Baseline Function- Mobility Modified Independent Current Functional Impairments (Reported) Functional Limitations- ADL's Dizziness getting into bed, reduced range of motion, neck pain, difficulty with lifting and boating due to pain Personal Factors Other Personal Factors That May Effect Pt reported low SpO2, fatigue Therapy/Recovery PT-OP-C Subjective Start: 09/09/21 12:04 Freq: Status: Active Protocol: Document 10/06/21 09:03 AMB (Rec: 10/06/21 09:47 AMB [id number]) OP-PT Subjective Patient Comments Patient Comments Pt is seeing a chiropractor in [place] on Tuesday. Mobility of the neck is improving, but pain has not been yet. Feels like vertigo has worsened in the last week. PT-OP-J Posture/Palpation/Skin Start: 09/09/21 12:04 Freq: Status: Active Protocol: Document 09/17/21 11:15 AMB (Rec: 09/20/21 12:33 AMB [id number]) Posture Evaluation Comments Posture Comments Forward head, forward shoulder posture, flat cervical spine Palpation Assessment Location One Palpation Location neck Palpation Findings Soft Tissue Tightness,Muscle Guarding Palpation Details increased tone of paraspinal muscles around scar from mid to lower cervical spine. Increased muscle tone of upper trapezius and levator scapula PT-OP-K Range of Motion Start: 09/09/21 12:04 Freq: Status: Active Protocol: Document 09/17/21 11:45 AMB (Rec: 09/17/21 11:49 AMB [id number]) Cervical Spine Range of Motion Cervical Spine Active Degrees Testing Position Sitting Flexion 40 Extension 30 Rotation Left 40 Rotation Right 34 Lateral Flexion Left 5 Lateral Flexion Right 5 PT-OP-Q Treatments Start: 09/09/21 12:04 Freq: Status: Active Protocol: Document 10/06/21 10:19 AMB (Rec: 10/07/21 10:22 AMB [id number]) Neuro Re-Education Treatment Other Activities 1 Details R Mary Reps/Duration 1 Comments torsional nystagmus in first postion for 5-10 seconds, very challenging to allow enough cervical extension throughout treatment, extensive pt education provided PT-OP-T Assessment and Plan Start: 09/09/21 12:04 Freq: Status: Active Protocol: Document 10/06/21 09:03 AMB (Rec: 10/06/21 09:47 AMB [id number]) Physical Therapy Assessment Goals Three Impairment neck pain Short Term Goal (STG) Alejandro will lift 10 pounds from the floor to chest height without an increase in neck pain. STG Duration 4 weeks [facility] Goal (LTG) Alejandro will drive his car for 30 minutes with neck pain of 3/ 10 or less. LTG Duration 8 weeks Two Impairment dizziness Short Term Goal (STG) Alejandro will look up without dizziness. STG Duration 4 weeks One Impairment ROM Short Term Goal (STG) Alejandro will improve his cervical rotation to at least 50 degrees bilaterally. STG Duration 4 weeks Panel Saw Operator Goal (LTG) Alejandro will improve his cervical extension to at least 40 degrees. Assessment Summary Assessment Pt did have signs of BPPV with R sided [employer]. Physical Therapy Plan Next Visit Focus/Plan Next Note Type Treatment Note Next Visit Plan REassess [employer] Follow up on posture, HEP: chin tuck , scap retract, levator scap stretch.
--- NOTE | 2021-10-09 11:39 | PT.OTN ---
Current Diagnoses Cervicalgia (10/09/21) Dizziness and giddiness (10/09/21) Physical Therapy Treatment Note PT-OP-A Visit Information Start: 09/09/21 12:04 Freq: Status: Active Protocol: Document 10/09/21 09:55 AMB (Rec: 10/09/21 10:33 AMB [id number]) Out-Patient Physical Therapy Visit Information Visit Information Visit Type Treatment Note Visit Start Time 09:45 Visit Stop Time 10:30 Total Visit Minutes 45 Visit Number 6 PT-OP-B Current Condition Start: 09/09/21 12:04 Freq: Status: Active Protocol: Document 09/17/21 11:18 AMB (Rec: 09/17/21 11:39 AMB [id number]) Current Condition History of Current Condition Onset Date September 2019 cervical laminoplasty Current Complaints neck pain, dizziness History of Current Condition Alejandro had a cervical laminoplasty C3-5 2 years ago. He elected to have the surgery, not due to neck pain but due to radicular sx (bowel /bladder/midback). 3 months ago developed vertigo when lying down the world spins. Spinning seems to be getting better over the past few weeks . Looking up increases pain, lifting increases neck pain. Did have prior PT for neck after surgery. Hasn't been boating as much because of the pain. Notices stiffness with neck range especially with driving. Sleeps on his sides/ back. History of lumbar laminectomy with numbness in great toe, does report less sure with balance. Treatment Goals Patient/Caregiver Goals Be able to move neck, less neck pain Prior Functional Status Baseline Function- ADL's Modified Independent Baseline Function- Mobility Modified Independent Current Functional Impairments (Reported) Functional Limitations- ADL's Dizziness getting into bed, reduced range of motion, neck pain, difficulty with lifting and boating due to pain Personal Factors Other Personal Factors That May Effect Pt reported low SpO2, fatigue Therapy/Recovery PT-OP-C Subjective Start: 09/09/21 12:04 Freq: Status: Active Protocol: Document 10/09/21 09:45 AMB (Rec: 10/09/21 11:39 AMB [id number]) OP-PT Subjective Patient Comments Patient Comments Pt notes less vertigo in bed since last session, but a little dizzy. PT-OP-J Posture/Palpation/Skin Start: 09/09/21 12:04 Freq: Status: Active Protocol: Document 09/17/21 11:15 AMB (Rec: 09/20/21 12:33 AMB [id number]) Posture Evaluation Comments Posture Comments Forward head, forward shoulder posture, flat cervical spine Palpation Assessment Location One Palpation Location neck Palpation Findings Soft Tissue Tightness,Muscle Guarding Palpation Details increased tone of paraspinal muscles around scar from mid to lower cervical spine. Increased muscle tone of upper trapezius and levator scapula PT-OP-K Range of Motion Start: 09/09/21 12:04 Freq: Status: Active Protocol: Document 10/09/21 09:53 AMB (Rec: 10/09/21 09:55 AMB [id number]) Cervical Spine Range of Motion Cervical Spine Active Degrees Testing Position Sitting Rotation Left 40 Rotation Right 46 PT-OP-Q Treatments Start: 09/09/21 12:04 Freq: Status: Active Protocol: Document 10/09/21 09:45 AMB (Rec: 10/09/21 11:39 AMB [id number]) Therapeutic Exercises Supine Exercises chin tuck Reps/Minutes 5x5 Standing Exercises chin tuck Standing Exercise Name against wall Reps/Minutes 5x 5 Comments cued occiput back to avoid upper cervical extension Manual Therapy Treatment Soft Tissue Mobilization suboccipital release Mobilization Type Myofascial Release,Sustained Pressure Body Position Hooklying Manual Techniques 1 Type contract relax Body Position Hooklying Reps/Duration 5 min Comments cervical rotation PT-OP-T Assessment and Plan Start: 09/09/21 12:04 Freq: Status: Active Protocol: Document 10/09/21 09:55 AMB (Rec: 10/09/21 10:33 AMB [id number]) Physical Therapy Assessment Goals Three Impairment neck pain Short Term Goal (STG) Alejandro will lift 10 pounds from the floor to chest height without an increase in neck pain. STG Duration 4 weeks [facility] Goal (LTG) Alejandro will drive his car for 30 minutes with neck pain of 3/ 10 or less. LTG Duration 8 weeks Two Impairment dizziness Short Term Goal (STG) Alejandro will look up without dizziness. STG Duration 4 weeks One Impairment ROM Short Term Goal (STG) Alejandro will improve his cervical rotation to at least 50 degrees bilaterally. STG Duration 4 weeks Licensed Guide Goal (LTG) Alejandro will improve his cervical extension to at least 40 degrees. Assessment Summary Assessment Didn't check [employer] today due to patient having chiropractor appointment later in the day. Wants to work on cervical alignment and mobility. Pt has shown some improvement in cervical rotation but continues to be stiff.
--- NOTE | 2021-10-16 11:21 | PT.OPDS ---
Current Diagnoses Cervicalgia (10/09/21) Dizziness and giddiness (10/09/21) Visit Care Team Role Provider Type Nayely Levine MD Attending Provider Non-Staff Family Provider Primary Care Provider Referring Provider Specialty: Internal Medicine Address: [address] [place] [address], [phone] Email: Visit Number Visit Number 6 Discharge Summary PT-OP-B Current Condition Start: 09/09/21 12:04 Freq: Status: Active Protocol: Document 09/17/21 11:18 AMB (Rec: 09/17/21 11:39 AMB [id number]) Current Condition History of Current Condition Onset Date September 2019 cervical laminoplasty Current Complaints neck pain, dizziness History of Current Condition Alejandro had a cervical laminoplasty C3-5 2 years ago. He elected to have the surgery, not due to neck pain but due to radicular sx (bowel /bladder/midback). 3 months ago developed vertigo when lying down the world spins. Spinning seems to be getting better over the past few weeks . Looking up increases pain, lifting increases neck pain. Did have prior PT for neck after surgery. Hasn't been boating as much because of the pain. Notices stiffness with neck range especially with driving. Sleeps on his sides/ back. History of lumbar laminectomy with numbness in great toe, does report less sure with balance. Treatment Goals Patient/Caregiver Goals Be able to move neck, less neck pain Prior Functional Status Baseline Function- ADL's Modified Independent Baseline Function- Mobility Modified Independent Current Functional Impairments (Reported) Functional Limitations- ADL's Dizziness getting into bed, reduced range of motion, neck pain, difficulty with lifting and boating due to pain Personal Factors Other Personal Factors That May Effect Pt reported low SpO2, fatigue Therapy/Recovery PT-OP-C Subjective Start: 09/09/21 12:04 Freq: Status: Active Protocol: Document 10/09/21 09:45 AMB (Rec: 10/09/21 11:39 AMB [id number]) OP-PT Subjective Patient Comments Patient Comments Pt notes less vertigo in bed since last session, but a little dizzy. PT-OP-J Posture/Palpation/Skin Start: 09/09/21 12:04 Freq: Status: Active Protocol: Document 09/17/21 11:15 AMB (Rec: 09/20/21 12:33 AMB [id number]) Posture Evaluation Comments Posture Comments Forward head, forward shoulder posture, flat cervical spine Palpation Assessment Location One Palpation Location neck Palpation Findings Soft Tissue Tightness,Muscle Guarding Palpation Details increased tone of paraspinal muscles around scar from mid to lower cervical spine. Increased muscle tone of upper trapezius and levator scapula PT-OP-K Range of Motion Start: 09/09/21 12:04 Freq: Status: Active Protocol: Document 10/09/21 09:53 AMB (Rec: 10/09/21 09:55 AMB [id number]) Cervical Spine Range of Motion Cervical Spine Active Degrees Testing Position Sitting Rotation Left 40 Rotation Right 46 PT-OP-T Assessment and Plan Start: 09/09/21 12:04 Freq: Status: Active Protocol: Document 10/16/21 11:21 AMB (Rec: 10/16/21 11:21 AMB [id number]) Physical Therapy Assessment Assessment Summary Assessment Alejandro called the clinic and states that his vertigo is clear and that he would like to be discharged at this time. Physical Therapy Plan Discharge Physical Therapy Discharge Reasons Patient Request
== END 2021-10-19 13:38 ==
LOC: PHYS 09:45
PROVIDERS: Family Provider Internal Medicine; PCP Internal Medicine; Referring Provider Internal Medicine; Visit Provider Internal Medicine
DX: M54.2 Cervicalgia (principal); R42 Dizziness and giddiness
CPT/HCPCS: 97110; 97112; 97140; 97161

== ENCOUNTER → 2022-06-17 08:05 | Outpatient (CLI) | payer MEDICARE, OTHER, SELFPAY ==
--- NOTE | 2022-06-17 | DI.RAD.S_ITS ---
PROCEDURE: XR CERVICAL SPINE 4V OR 5V INDICATIONS: CERVICAL STENOSIS/BACK PAIN TECHNIQUE: 5 views of the cervical spine were acquired. COMPARISON: [facility], MR, MR CERVICAL SPINE WO CON, 06/17/2022, 8:41. [facility], CR, XR CERVICAL SPINE 4V OR 5V, 07/09/2019, 16:39. FINDINGS: Bones: No fractures or dislocations to the C7 level. Right sided Postsurgical changes of the cervical spine at C3 through C6. Straightening of the normal cervical lordosis, a finding which can be seen in the setting of muscle strain and/or spasm. Moderate-severe multilevel degenerative changes with disc height loss, endplate spurring, and facet arthropathy. No definite abnormal motion with flexion or extension Soft tissues: Prevertebral soft tissues are normal in thickness. IMPRESSION: Multilevel degenerative changes of the cervical spine Dictated by: Chente Nick M.D. on 06/17/2022 at 16:23 Approved by: Chente Nick M.D. on 06/17/2022 at 16:27
--- NOTE | 2022-06-17 | DI.MRI.S_ITS ---
PROCEDURE: MR CERVICAL SPINE WO CON INDICATIONS: CERVICAL STENOSIS/BACK PAIN TECHNIQUE: Noncontrast sagittal T1 spin echo and T2 fast spin echo, sagittal STIR, foraminal oblique sagittal T2 fast spin echo, and axial gradient echo or T2 fast spin echo through the cervical spine. COMPARISON: [facility], MR, MR CERVICAL SPINE WO CON, 06/27/2019, 18:18. FINDINGS: Image quality: Excellent. Alignment and Curvature: There is normal bony alignment. Bone Marrow: Marrow demonstrates normal overall signal. Spinal Cord: Visualized spinal cord has normal size and signal. No cerebellar tonsillar herniation. Paraspinous Soft Tissues: Incidental are retro cerebellar cyst, partially imaged. C2-C3: Normal appearance. C3-C4: Disc space narrowing and posterior disc osteophyte complex with hypertrophic right uncovertebral joint results in moderate right and no left foraminal stenosis. Mild central stenosis. C4-C5: Disc space narrowing and hypertrophic uncovertebral joints present. No central stenosis. Moderate right and no left foraminal stenosis C5-C6: Disc space narrowing and posterior disc osteophyte complex results in mild central stenosis. Moderate right and left foraminal stenosis C6-C7: Disc space narrowing and posterior disc osteophyte complex with mild central stenosis. No foraminal stenosis C7-T1: Disc space narrowing posterior disc osteophyte complex with mild central stenosis. No foraminal stenosis IMPRESSION: Multilevel degenerative disc disease arthropathy predominantly results in foraminal stenosis, including moderate right foraminal stenosis at C3-4, C4-5 and C5-6 Approved by: Mathew Raza M.D. on 06/17/2022 at 12:30
--- NOTE | 2022-06-17 | DI.MRI.S_ITS ---
PROCEDURE: MR LUMBAR SPINE WO CON INDICATIONS: CERVICAL STENOSIS/BACK PAIN TECHNIQUE: Noncontrast sagittal T1 spin echo and T2 fast echo, sagittal STIR, and T2 fast spin echo through the lumbar spine. In cases with scoliosis, additional coronal T2 fast spin echo may be performed. COMPARISON: None. FINDINGS: Image quality: Excellent. Alignment and Curvature: There is normal bony alignment. Bone Marrow: Degenerative endplate changes noted L2-3. L4-5 decompressive laminotomy noted without instrumentation. Chronic degenerative endplate changes noted particularly at L4-5. Hemangioma noted L1 vertebral body Spinal Cord: Conus medullaris terminates at the L1 level. Visualized cord demonstrates normal signal and size. Paraspinous Soft Tissues: No paravertebral masses. T12-L1: Normal appearance. L1-L2: Normal appearance. L2-L3: Disc space narrowing with circumferential disc bulge and hypertrophic facet joints. Mild central stenosis. Moderate bilateral foraminal stenosis L3-L4: Disc space narrowing with circumferential disc bulge and ligamentum flavum laxity combines with dorsal epidural fat to result in moderate central stenosis. Severe bilateral foraminal stenosis L4-L5: Disc space narrowing with circumferential disc bulge and posterior decompressive laminotomy. No central stenosis. Moderate bilateral foraminal stenosis L5-S1: Disc space narrowing with circumferential disc bulge and hypertrophic facet joints. No central stenosis. Moderate bilateral foraminal stenosis IMPRESSION: 1. Multilevel degenerative disc disease and arthropathy results in varying degrees of central and foraminal stenosis including moderate L3-4 central stenosis. 2. Decompressive laminotomy L4-5 without instrumentation or fusion Approved by: Mathew Raza M.D. on 06/17/2022 at 12:50
== END ==
PROVIDERS: Family Provider Internal Medicine; PCP Internal Medicine; Referring Provider Psychiatry & Neurology Neurology; Visit Provider Psychiatry & Neurology Neurology
DX: M48.02 Spinal stenosis, cervical region (principal); M47.812 Spondylosis without myelopathy or radiculopathy, cervical region; M48.061 Spinal stenosis, lumbar region without neurogenic claudication; M51.36 Other intervertebral disc degeneration, lumbar region; M47.816 Spondylosis without myelopathy or radiculopathy, lumbar region; M48.07 Spinal stenosis, lumbosacral region; M47.817 Spondylosis without myelopathy or radiculopathy, lumbosacral region; M51.37 Other intervertebral disc degeneration, lumbosacral region; M54.2 Cervicalgia; M54.9 Dorsalgia, unspecified
CPT/HCPCS: 72050; 72141; 72148

== ENCOUNTER → 2023-10-06 10:56 | Outpatient (CLI) | payer MEDICARE, OTHER, SELFPAY ==
--- NOTE | 2023-10-06 11:01 | DI.CT.S_ITS ---
PROCEDURE: CT ABDOMEN PELVIS W CON INDICATIONS: Left lower quadrant pain TECHNIQUE: After the administration of intravenous contrast, axial sections acquired from the lung bases to the pubic symphysis. Coronal and sagittal reformats were performed. For radiation dose reduction, the following was used: automated exposure control, adjustment of mA and/or kV according to patient size. COMPARISON: None. FINDINGS: Image quality: Diagnostic. Lower Chest: No significant findings. ABDOMEN: Liver: There is diffuse hypoattenuation of the liver parenchyma relative to the spleen compatible with hepatic steatosis. Gallbladder: No radiopaque gallstones or wall thickening. Biliary ducts: No biliary dilation. Pancreas: No ductal dilation. Spleen: Size is within normal limits. Adrenal Glands: No adrenal nodules. Kidneys and Ureters: No hydronephrosis. No solid mass. No complex renal cystic lesion which requires follow up. Stomach and Bowel: Normal colonic caliber, without significant wall thickening. Scattered colonic diverticula without acute inflammation. Normal appendix. Peritoneum: No abnormal intraperitoneal fluid. No free air. Ventral Wall: There is a fat-containing umbilical hernia without acute inflammation. Abdominal Nodes: No retroperitoneal or mesenteric adenopathy by size criteria. Vessels: Aorta and inferior vena cava are normal in size. PELVIS: Pelvic Organs: Prostatomegaly. Bladder: No bladder wall thickening, accounting for underdistention. Pelvic Nodes: No enlarged lymph nodes. Miscellaneous: Fat containing bilateral inguinal hernias without acute inflammation. Bones: No aggressive osseous abnormality. Visualized osseous structures appear intact without acute fracture or focal destructive lesion. No acute compression fractures of the imaged spine. IMPRESSION: 1. Colonic diverticulosis without acute diverticulitis. 2. Prostatomegaly. 3. Hepatic steatosis. 4. Other chronic findings as above. Dictated by: Christiano Castillo M.D. on 10/06/2023 at 15:59 Approved by: Christiano Castillo M.D. on 10/06/2023 at 16:05
[2023-10-06 11:32] LABS: Estimated Glomerular Filt Rate > 60 mL/min (>60)
== END ==
PROVIDERS: Specialist; Family Provider Internal Medicine; Referring Provider Nurse Practitioner; Visit Provider Nurse Practitioner
DX: K57.90 Diverticulosis of intestine, part unspecified, without perforation or abscess without bleeding (principal); N40.0 Benign prostatic hyperplasia without lower urinary tract symptoms; K76.0 Fatty (change of) liver, not elsewhere classified; K40.20 Bilateral inguinal hernia, without obstruction or gangrene, not specified as recurrent; N39.43 Post-void dribbling; R10.32 Left lower quadrant pain; Z86.010 Personal history of colon polyps
CPT/HCPCS: 36415; 74177; 82565

== ENCOUNTER → 2023-11-24 11:04 | Outpatient (CLI) | payer MEDICARE, OTHER, SELFPAY ==
[2023-11-24 12:57] LABS: Alanine Aminotransferase 33 IU/L (<50); Albumin 4.6 g/dL (3.5-5.0); Albumin Globulin Ratio 1.7 (1.0-2.8); Alkaline Phosphatase 54 U/L (38-126); Aspartate Aminotransferase 29 IU/L (17-59); BUN Creatinine Ratio 23.6 (6-22); Bilirubin Total 0.5 mg/dL (0.2-1.3); Blood Urea Nitrogen 21 mg/dL (9-20); Calcium 9.7 mg/dL (8.4-10.2); Carbon Dioxide 27 mmol/L (22-32); Chloride 103 mmol/L (98-107); Estimated Glomerular Filt Rate > 60 mL/min (>60); Globulin 2.7 g/dL (1.7-4.1); Glucose 114 mg/dL (80-110); HEMOLYSIS < 15 (0-50); Potassium 4.8 mmol/L (3.4-5.1); Sodium 136 mmol/L (137-145); Total Protein 7.3 g/dL (6.3-8.2)
[2023-11-24 13:19] LABS: Hemoglobin A1C% w Est Avg Glu 6.1 % (4.0-6.0)
[2023-11-25 09:44] LABS: PSA Free % 22.2 % (.); PSA, Total 3.2 ng/mL (0.0-4.0)
== END ==
PROVIDERS: Family Provider Internal Medicine; Referring Provider Student in an Organized Health Care Education/Training Program; Visit Provider Student in an Organized Health Care Education/Training Program
DX: K76.0 Fatty (change of) liver, not elsewhere classified (principal); R97.20 Elevated prostate specific antigen [PSA]
CPT/HCPCS: 36415; 80053; 83036; 84153; 84154

== ENCOUNTER → 2024-04-16 12:17 | Outpatient (CLI) | payer MEDICARE, OTHER, SELFPAY | PROVIDERS: Family Provider Internal Medicine; Visit Provider Nurse Practitioner Family | DX: M79.675 Pain in left toe(s) (principal) | CPT/HCPCS: 87070; 87205 ==

== ENCOUNTER → 2024-05-21 12:04 | Outpatient (CLI) | payer MEDICARE, OTHER, SELFPAY ==
--- NOTE | 2024-05-21 12:22 | EKG_ITS ---
[address] [address] Test Date: 2024-05-21 Pat Name: Alejandro Caleblencho Department: [facility] Room: Gender: Male Order Taker: AAKASH : 1950 Requested By: Order Number: [id number] Reading MD: Lebron Pak MD Measurements Intervals [place] Rate: 76 P: 62 AK: 164 QRS: -9 QRSD: 92 T: 20 QT: 382 QTc: 429 Interpretive Statements Normal sinus rhythm Incomplete right bundle branch block NO PRIOR TRACING Electronically Signed On 05-21-2024 16:46:37 PST by Lebron Pak MD
== END ==
PROVIDERS: Family Provider Internal Medicine; Referring Provider Urology; Visit Provider Urology
DX: Z01.810 Encounter for preprocedural cardiovascular examination (principal)
CPT/HCPCS: 93005; 93010

== ENCOUNTER → 2024-07-23 13:00 | Outpatient (CLI) | payer MEDICARE, OTHER, SELFPAY ==
--- NOTE | 2024-07-23 13:01 | DI.US.S_ITS ---
PROCEDURE: US PERIPH VENOUS LOW EXTREM LT INDICATIONS: Lower left leg swelling TECHNIQUE: Real-time imaging, as well as color and pulse Doppler interrogation, were performed of the lower extremity deep veins from the inguinal ligament to the popliteal fossa, with documentation of the visualized calf veins. COMPARISON: None. FINDINGS: The common femoral, femoral, popliteal, and the visualized calf veins are normally compressible, and free of intraluminal thrombus. Color and pulse Doppler demonstrate normal phasic intraluminal flow. There is normal augmentation response to distal compression maneuver. IMPRESSION: No findings of lower extremity deep venous thrombosis. Dictated by: Juanjo Duval M.D. on 07/23/2024 at 13:24 Approved by: Juanjo Duval M.D. on 07/23/2024 at 13:24
== END ==
PROVIDERS: Family Provider Internal Medicine; Referring Provider Nurse Practitioner Family; Visit Provider Nurse Practitioner Family
DX: M79.89 Other specified soft tissue disorders (principal)
CPT/HCPCS: 93971

== ENCOUNTER → 2024-07-24 11:55 | Outpatient (CLI) | payer MEDICARE, OTHER, SELFPAY ==
--- NOTE | 2024-07-24 11:57 | DI.RAD.S_ITS ---
PROCEDURE: XR KNEE LT 3V INDICATIONS: Left knee swelling TECHNIQUE: 3 views of the knee were acquired. COMPARISON: None. FINDINGS: Bones: No fractures or dislocations. No suspicious bony lesions. Tricompartmental degenerative joint space narrowing. Minimal periarticular osteophytes. Soft tissues: Moderate joint effusion. No suspicious soft tissue calcifications. IMPRESSION: Moderate effusion. Tricompartmental arthritic changes. Dictated by: Sherry Cagle M.D. on 07/24/2024 at 14:42 Approved by: Sherry Cagle M.D. on 07/24/2024 at 14:43
== END ==
PROVIDERS: Family Provider Internal Medicine; Referring Provider Nurse Practitioner Family; Visit Provider Nurse Practitioner Family
DX: M25.462 Effusion, left knee (principal)
CPT/HCPCS: 73562

== ENCOUNTER → 2024-10-22 12:45 | Outpatient (CLI) | payer MEDICARE, OTHER, SELFPAY ==
[2024-10-22 15:57] LABS: Prostate Specific Antigen 0.236 ng/mL (0.10-4.00)
== END ==
PROVIDERS: Family Provider Internal Medicine; PCP Student in an Organized Health Care Education/Training Program; Referring Provider Urology; Visit Provider Urology
DX: N40.1 Benign prostatic hyperplasia with lower urinary tract symptoms (principal); N13.8 Other obstructive and reflux uropathy
CPT/HCPCS: 36415; 84153

== ENCOUNTER → 2024-10-25 09:04 | Outpatient (CLI) | payer MEDICARE, OTHER, SELFPAY ==
--- NOTE | 2024-10-25 09:05 | DI.MRI.S_ITS ---
PROCEDURE: MR KNEE LT WO CON INDICATIONS: primary osteoarthritis TECHNIQUE: Noncontrast sagittal PD fast spin echo and T2 fast spin echo with fat saturation, sagittal 3-D FLASH with fat saturation; coronal T1 spin echo and PD fast spin echo with fat saturation, and axial PD fast spin echo with fat saturation through the knee. COMPARISON: [facility], CR, XR KNEE LT 3V, 07/24/2024, 12:00. FINDINGS: Image quality: Excellent. Menisci: In the medial meniscus, there is complex tear of the posterior horn, with extremely diminutive appearance of the posterior horn. There is near complete maceration of the posterior horn and meniscus body junction, extending to the meniscus body, with marked extrusion of the medial meniscus body. In the lateral meniscus, there is horizontal longitudinal tear of the posterior horn, with a complex tear of the meniscus body. Additional horizontal longitudinal tear of the anterior horn, extending to the anterior root. No extrusion of the lateral meniscus body. Cruciate ligaments: The ACL is intact. The PCL is intact as well. Medial structures: Grade 1 sprain of the MCL. mild tendinosis of the proximal MCL, at the femoral insertion. Lateral structures: The lateral collateral ligament, long and short heads of the biceps femoris tendon appear intact. The popliteus tendon appears normal; the popliteofibular ligament appears intact. The posterosuperior and anteroinferior popliteomeniscal fascicles appear intact. The arcuate and fabellofibular ligaments appear intact, on either side of the lateral inferior geniculate artery. Iliotibial band appears normal. Anterior structures: The distal quadriceps tendon is unremarkable. The patellar tendon is unremarkable. There is enthesophyte of the inferior pole of the patella, with marrow edema, representing enthesitis. Mild prepatellar bursitis. Diffuse edema in the prepatellar and superficial infrapatellar subcutaneous fat. Alignment of the patellofemoral compartment is anatomic. The medial and the lateral patellofemoral ligaments are grossly intact. Bones and cartilage: Mild chondrosis of the patellofemoral compartment, with mild subchondral marrow edema in the lateral trochlea. In the medial compartment, there is complete chondral denudation in the weight- bearing portion of the medial femoral condyle, with marked subchondral marrow edema. There is high-grade chondral thinning in the medial tibial plateau, with mild subchondral marrow edema. In the lateral compartment, the cartilage is grossly well maintained. 1.6 cm T2 hyperintense, lobulated lesion in the distal femur metadiaphysis, likely representing a low-grade chondroid lesion. Joint space: Moderate knee effusion. No intra-articular body. Moderate-sized, complex popliteal cyst. Mild tendinosis of the distal semimembranosus. Popliteal vasculature is unremarkable. IMPRESSION: 1. Extensive tear of the medial and lateral meniscus, medial greater than lateral. 2. Grade 1 sprain of the MCL. 3. Enthesophyte with enthesitis at the inferior pole of the patella. 4. Prepatellar bursitis. 5. 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 6. 1.6 cm likely low-grade chondroid lesion in the distal femur metadiaphysis. 7. Moderate knee effusion. Moderate popliteal cyst. Dictated by: Luda Montague M.D. on 10/25/2024 at 15:32 Approved by: Luda Montague M.D. on 10/25/2024 at 15:46
== END ==
LOC: MRI 09:05
PROVIDERS: Family Provider Internal Medicine; PCP Student in an Organized Health Care Education/Training Program; Referring Provider Orthopaedic Surgery; Visit Provider Orthopaedic Surgery
DX: S83.232A Complex tear of medial meniscus, current injury, left knee, initial encounter (principal); S83.272A Complex tear of lateral meniscus, current injury, left knee, initial encounter; M17.12 Unilateral primary osteoarthritis, left knee; S83.412A Sprain of medial collateral ligament of left knee, initial encounter; M70.42 Prepatellar bursitis, left knee; M22.42 Chondromalacia patellae, left knee; M25.462 Effusion, left knee
CPT/HCPCS: 73721